=== PATIENT | male | born 1950 | race Caucasian/White ===

== ENCOUNTER 2024-10-26 08:42 | Emergency (ER) | payer MEDICARE ==
[~2024-10-26] VITALS: Ht 177.8 cm; Wt 90.7 kg
--- NOTE | 2024-10-26 09:00 | EKG ---
[facility] Test Date: 2024-10-26 Test Time: 08:57:08 Pat Name: CAITLIN VILLEGAS Department: ED Room: Gender: Teaching [employer] Lessons: [id number] : 1950 Requested By: ALETA LANDIS Order Number: [id number] Reading MD: Edwin Clemons Measurements Intervals [place] Rate: 70 P: 45 MA: 170 QRS: -42 QRSD: 94 T: 23 QT: 397 QTc: 428 Interpretive Statements Sinus rhythm Left anterior fascicular block No previous ECG available for comparison Electronically Signed On 10-28-2024 19:57:53 CERTIFIED CODER by Edwin Clemons Please click the below link to view image of tracing.
--- NOTE | 2024-10-26 09:21 | HMCIMG ---
CHEST 1VW REASON: cardiac workup COMPARISON: None. FINDINGS: Single view of the chest was obtained. Lungs are clear. Heart size is normal. There is no pulmonary vascular congestion. Mediastinum and bony thorax appear unremarkable. IMPRESSION: 1. Normal single view chest x-ray.
--- NOTE | 2024-10-26 10:04 | ERN ---
ED Note History of Present Illness Stated Complaint: DIZZINESS, ELEVATED BP Chief Complaint: Dizzy/Light Headed Time Seen by MD: 08:46 Dictation: 74-year-old male presents to the ED for evaluation of dizziness onset four days ago. Patient states dizziness worsens when he changes position and also mentioned he has been having elevated blood pressure at home. Patient had a cochlear implant placed six months ago. Allergies: Coded Allergies: No Known Allergies (Unverified Allergy, Unknown, 10/26/24) Home Meds Active Scripts Meclizine HCl (Meclizine HCl) 25 Mg Tablet, 25 MG PO TID for vertigo, #30 TAB 0 Refills Prov:ALETA LANDIS MD 10/26/24 Past Medical History Past Medical History: High Cholesterol, Other Additional Past Medical Hx: VERTIGO Surgical History: Other Surgical History Other: COCHLEAR IMPLANT Review of System Dictation Constitutional: Negative for fever,chills, and weight loss Eyes: Negative for injury, pain,redness, and discharge ENT: Negative for injury,pain or swelling Cardiovascular: Negative for chest pain, palpitations, and edema Respiratory: Negative for shortness of breath, cough, and wheezing, Abdomen/GI: Negative for abdominal pain, nausea, vomiting, diarrhea, and constipation Back: Negative for injury and pain : Negative for injury, bleeding and discharge MS/Extremity: Negative for injury and deformity Skin: Negative for rash, and discoloration Neuro: Positive for dizziness Negative for headache, weakness, numbness, tingling, and seizure Psych: Negative for suicide ideation, homicidal ideation, and hallucinations Initial Vital Sign VS Vital Signs Date Time Temp Pulse Resp B/P (MAP) Pulse Ox O2 Delivery O2 Flow Rate FiO2 10/26/24 08:44 98.2 69 16 169/99 98 Room Air 0 10/26/24 08:49 21 Physical Exam Dictation General: awake, alert, NAD Head/Face: Normocephalic, atraumatic, left cochlear implant Eyes: PERRL, EOMI, vision at baseline ENT: oral cavity clear, TMs clear, no signs of infection Neck: Trachea midline, supple, no nuchal rigidity Cardiovascular: RRR, normal S1/S2, No MRGs, no JVD Respiratory: CTAB, no respiratory distress, No rales or wheezes Abdomen: Soft, non-tender, non-distended, normal bowel sounds, no guarding or rebound. Skin: Warm, dry, normal turgor, no rash MS/Extremity: Pulses equal, no cyanosis, neurovascular intact, FROM Neuro: COAx4, GCS 15, strength 5/5, CN 2-12 intact, normal cerebellar exam, normal gait, Psych: Normal behavior, mood, and affect normal Results (Laboratory/Radiology) Laboratory/Radiology Laboratory Tests Test 10/26/24 09:57 White Blood Count 10.2 K/uL (4.8-10.8) Red Blood Count 5.70 MIL/uL (4.50-6.20) Hemoglobin 16.1 g/dL (14.0-18.0) Hematocrit 48.5 % (42-54) Mean Corpuscular Volume 85.1 fL (79-99) Mean Corpuscular Hemoglobin 28.2 pg (27.0-33.0) Mean Corpuscular Hemoglobin Concent 33.2 g/dL (32.0-36.0) Red Cell Distribution Width 13.1 % (11.0-15.5) Platelet Count 326 K/uL (130-400) Mean Platelet Volume 8.9 fL (7.5-10.5) Immature Granulocyte % (Auto) 0.4 % (0-1) Neutrophils (%) (Auto) 67.1 % (40.0-77.0) Lymphocytes (%) (Auto) 23.3 % (21.0-51.0) Monocytes (%) (Auto) 5.4 % (3.0-13.0) Eosinophils (%) (Auto) 3.1 % (0.0-8.0) Basophils (%) (Auto) 0.7 % (0.0-5.0) Neutrophils # (Auto) 6.9 K/uL (1.8-7.7) Lymphocytes # (Auto) 2.4 K/uL (1.0-4.8) Monocytes # (Auto) 0.6 K/uL (0.1-1.0) Eosinophils # (Auto) 0.32 K/uL (0.00-0.70) Basophils # (Auto) 0.07 K/uL (0.00-0.20) Absolute Immature Granulocyte (auto 0.04 K/uL (0-1) Nucleated Red Blood Cells 0.0 % (0.0-0.19) Sodium Level 140 mmol/L (136-145) Potassium Level 4.0 mmol/L (3.5-5.1) Chloride Level 103 mmol/L (101-111) Carbon Dioxide Level 29 mmol/L (21-32) Blood Urea Nitrogen 18 mg/dL (7-18) Creatinine 1.1 mg/dL (0.5-1.3) Glomerular Filtration Rate Calc 70 mL/min (>90) Random Glucose 102 mg/dL (70-105) Total Calcium 9.1 mg/dL (8.5-10.1) Troponin I High Sensitivity 6 ng/L (4-75) B-Type Natriuretic Peptide 12 pg/mL (0-100) Labs Reviewed?: Yes EKG Comment: EKG 10/26/2024 time 8:57 a.m. ventricular rate 70, SD 170, QRS D 94, QT 397. Sinus rhythm, left anterior fascicular block. No STEMI X-RAY Comment: REASON: cardiac workup ORDERING PHYSICIAN: ALETA LANDIS MD PROCEDURE: CXR1VW - CHEST 1VW CHEST 1VW REASON: cardiac workup COMPARISON: None. FINDINGS: Single view of the chest was obtained. Lungs are clear. Heart size is normal. There is no pulmonary vascular congestion. Mediastinum and bony thorax appear unremarkable. IMPRESSION: 1. Normal single view chest x-ray. DICTATED BY: BELTRAN ESTRADA MD DATE: 10/26/[address] Scan Comment: REASON: dizziness ORDERING PHYSICIAN: ALETA LANDIS MD PROCEDURE: HEAD WO - CT HEAD/BRAIN W/O CONTRAST Exam: NONCONTRAST CT BRAIN REASON: dizziness. COMPARISON: None. TECHNIQUE: Images are obtained from vertex to the skull base. The exam was performed without IV contrast. FINDINGS: There is normal appearing brain parenchyma. There are no focal mass lesions. There is is no evidence of intracranial hemorrhage or acute stroke. Ventricles and sulci appear normal. Posterior fossa and brainstem structures are unremarkable. Paranasal sinuses and remaining extracranial soft tissues appear normal as well.Cochlear implant is noted to on the left. IMPRESSION: 1. No acute intracranial finding. 2. Cochlear implant. CT was performed with one or more following dose reduction techniques: automated exposure control, adjustment of the mA and kv according to patient's size, or use of a iterative reconstruction technique. DICTATED BY: BELTRAN ESTRADA MD DATE: 10/26/24 1006 ED Course ED Course Orders Procedure Category Date Status Time 12 Lead Ekg Tracing- EKG 10/26/24 Complete Technical 08:46 Cbc With Differential LAB 10/26/24 Complete 08:46 Basic Metabolic Panel LAB 10/26/24 Complete 08:46 B-Type Natriuretic LAB 10/26/24 Complete Peptide 08:46 Troponin I High LAB 10/26/24 Complete Sensitivity 08:46 Chest 1vw RAD 10/26/24 Resulted 08:46 Ct Head/Brain W/O CT 10/26/24 Resulted Contrast 08:46 Diazepam 5 Mg/Ml 2 Ml PHA 10/26/24 Complete Syg (Valium 5 Mg/M 11:00 Ondansetron 4mg Inj PHA 10/26/24 Complete (Zofran 4mg Inj) 11:00 0.9% Nacl 500ml PHA 10/26/24 Complete Iv.Soln (Ns 500ml 11:00 Current Medications Medications (Trade) Dose Ordered Sig/Quentin Route PRN Reason Start Time Stop Time Status Last Admin Dose Admin Diazepam (VALium 5 MG/ML 2 ML SYG) 5 mg ONCE ONCE IVP 10/26/24 11:00 10/26/24 11:05 DC 10/26/24 11:48 Ondansetron HCl (zoFRAN 4MG INJ) 4 mg ONCE ONCE IVP 10/26/24 11:00 10/26/24 11:05 DC 10/26/24 11:48 Sodium Chloride 500 ml @ 0 mls/hr ONCE ONCE IV 10/26/24 11:00 10/26/24 11:05 DC 10/26/24 11:48 Vital Signs Date Time Temp Pulse Resp B/P (MAP) Pulse Ox O2 Delivery O2 Flow Rate FiO2 10/26/24 14:00 98.2 64 16 154/80 98 Room Air* 0 10/26/24 11:32 98.2 69 16 169/99 98 Room Air* 0 10/26/24 08:49 98.2 69 16 169/99 98 Room Air* 0 10/26/24 08:44 98.2 69 16 169/99 98 Room Air 0 HEART Score Response (Comments) Value History: Low suspicion (0) 0 EKG: Normal 0 Age: > 65yrs (+2) 2 Risk Factors: No known risk factors (0) 0 Initial Troponin: Normal limit (0) 0 HEART Score Risk: Low Risk for MACE (1-3) Total 2 Medical Decision Making MDM MDM: Differential diagnosis: Dizziness, vertigo, HTN Rationale: Tests considered and ordered secondary to shared decision making include: labs, EKG and radiology Risk of complication and/or morbidity or mortality of patient management: None Medications-Per medication reconciliation Need for hospitalization: Patient does meet criteria for hospitalization. Need for emergency major/minor surgery: No There are no social concerns with this patient. Prescription drug management Prescriptions will include symptomatic care I independently interpreted the test that were performed, results were reviewed by me and considered findings on radiology if ordered. DX & DISP Disposition: Discharge Departure Impression: Primary Impression: Vertigo Condition: Stable Scripts Meclizine HCl (Meclizine HCl) 25 Mg Tablet 25 MG PO TID for vertigo, #30 TAB 0 Refills Prov: ALETA LANDIS MD 10/26/24 Referrals: NONE (PCP) ALETA LANDIS MD Oct 26, 2024 10:04
--- NOTE | 2024-10-26 10:10 | HMCIMG ---
Exam: NONCONTRAST CT BRAIN REASON: dizziness. COMPARISON: None. TECHNIQUE: Images are obtained from vertex to the skull base. The exam was performed without IV contrast. FINDINGS: There is normal appearing brain parenchyma. There are no focal mass lesions. There is is no evidence of intracranial hemorrhage or acute stroke. Ventricles and sulci appear normal. Posterior fossa and brainstem structures are unremarkable. Paranasal sinuses and remaining extracranial soft tissues appear normal as well.Cochlear implant is noted to on the left. IMPRESSION: 1. No acute intracranial finding. 2. Cochlear implant. CT was performed with one or more following dose reduction techniques: automated exposure control, adjustment of the mA and kv according to patient's size, or use of a iterative reconstruction technique.
[2024-10-26 10:18] LABS: BASOPHILS # (AUTO) 0.07 K/uL (0.00-0.20); BASOPHILS % (AUTO) 0.7 % (0.0-5.0); EOSINOPHILS # (AUTO) 0.32 K/uL (0.00-0.70); EOSINOPHILS % (AUTO) 3.1 % (0.0-8.0); HEMATOCRIT 48.5 % (42-54); IMMATURE GRANULOCYTE ABSOLUTE 0.04 K/uL (0-1); LYMPHOCYTES # (AUTO) 2.4 K/uL (1.0-4.8); LYMPHOCYTES % (AUTO) 23.3 % (21.0-51.0); MEAN CORPUSCULAR HEMOGLOBIN 28.2 pg (27.0-33.0); MEAN CORPUSCULAR HGB CONC 33.2 g/dL (32.0-36.0); MEAN CORPUSCULAR VOLUME 85.1 fL (79-99); MONOCYTES # (AUTO) 0.6 K/uL (0.1-1.0); MONOCYTES % (AUTO) 5.4 % (3.0-13.0); NEUTROPHILS # (AUTO) 6.9 K/uL (1.8-7.7); NEUTROPHILS % (AUTO) 67.1 % (40.0-77.0); PLATELET COUNT (AUTO) 326 K/uL (130-400); RED CELL DISTRIBUTION WIDTH 13.1 % (11.0-15.5); WHITE BLOOD COUNT (AUTO) 10.2 K/uL (4.8-10.8)
[2024-10-26 10:21] LABS: CREATININE 1.1 mg/dL (0.5-1.3)
[2024-10-26 10:40] LABS: B-TYPE NATRIURETIC PEPTIDE 12 pg/mL (0-100)
[2024-10-26] MEDS: diazePAM 5 MG/ML 2 ML SYG IVP ONE (11:48)
[2024-10-26] MEDS: 0.9% NACL 500ML IV.SOLN 500 ML IV ONE (11:48)
[2024-10-26] MEDS: ondanSETRON 4MG INJ IVP ONE (11:48)
[2024-10-26 14:00] VITALS: BP 154/80; PULSE 64; RESP 16; TEMP 98.2; O2SAT 98
[2024-10-26] MEDS ORDERED: MECL-302 PO (14:29)
== END 2024-10-26 14:55 | disposition home or self-care (01) ==
LOC: EDH 08:42
DX: R42 Dizziness and giddiness (principal); E78.00 Pure hypercholesterolemia, unspecified; Z79.899 Other long term (current) drug therapy; Z98.890 Other specified postprocedural states
CPT/HCPCS: 99285; 96374; 70450; 71045; 96375; 84484; 80048; 83880; 85025; 36415; 93005; J7040; J3360; J2405